=== PATIENT | male | born 1950 | race Caucasian/White ===

== ENCOUNTER 2017-01-20 08:45 | Day surgery (SDC) | payer MEDICARE, OTHER ==
[~2017-01-20 08:45] MED LIST: Lactated Ringers 1,000 ML IV SCH
[2017-01-20] MEDS ORDERED: fentaNYL 100 MCG/2 ML SDV ONE (11:09)
[2017-01-20] MEDS ORDERED: Propofol 200 MG/20 ML SDV ONE (11:09)
[2017-01-20 13:26] VITALS: BP 146/71
--- NOTE | 2017-01-20 22:09 | OR ---
DATE OF THE PROCEDURE: 01/20/2017. REFERRING PROVIDER: SUSAN Salter. PRE-OPERATIVE DIAGNOSES: 1. Recent acute gastritis. 2. Chronic abdominal pain and dyspepsia. The patient is on Omeprazole 20 mg daily and has shown improvement. 3. Some mild dysphagia. POST-OPERATIVE DIAGNOSES: 1. Mild antritis noted. No ulcerations seen. Cold biopsy x2 bites taken for path and H. pylori. 2. Very minimal esophagitis noted at the lower esophageal junction. 3. Upper third portion of esophagus revealed some impacted food, which may have been some lobster tail that the patient had eaten yesterday. This was easily pushed into the stomach. No strictures or rings there, just a slight bend to the esophagus. PROCEDURE: EGD with cold biopsy x1 site using cold forceps. SURGEON: Addy Morel M.D. ANESTHESIA: Monitored anesthesia care. Hollis is a 66-year-old male who was brought to the endoscope suite after discussion of risks and benefits (including but not limited to reaction to medication, bleeding, infection, aspiration, perforation). Informed consent was obtained for monitored anesthesia care and esophagogastroduodenoscopy along with possible biopsy and/or dilatation. Pre-procedure exam including oral cavity was unremarkable. IV, oxygen, and monitors were placed. Patient was placed in the left lateral position and sedation was administered. A bite block was placed gently and scope lightly lubricated and passed through the bite block and over the tongue. Hypopharynx and vocal cords were visualized and unremarkable. Scope was passed through the cricopharynx and into the esophagus. The scope was then passed through the distal esophagus and the GE junction was visualized and photographed. The GE junction was remarkable for some very minimal esophagitis. Vocal cords were visualized and unremarkable. The scope was advanced into the stomach and gastric stringer was suctioned. Pylorus was identified and intubated and then the scope was advanced to the third portion of the duodenum. The second and third portions of the duodenum were unremarkable. The duodenal bulb was visualized and unremarkable. The scope was brought back into the stomach. The pylorus and the antrum were remarkable for some mild antritis. Cold biopsy x2 bites was taken for path and H. pylori and sent for path. The scope was retroflexed to visualize the angularis, fundus, body, and cardia. These were unremarkable. The stomach was desufflated of air and then the scope was slowly withdrawn, and the esophagus was closely visualized during withdrawal all the way into the posterior pharynx. On the way in, some impacted food was noted at the upper third portion of the esophagus and a slight bend. There were no strictures or rings. The impacted food was easily pushed into the stomach and there was no inflammation or ulceration of this esophageal mucosa noted. In the upper esophagus there was an area of heterotopic type mucosa. Cold biopsy x2 bites was taken of this area and sent for path. The patient tolerated the procedure well and went to recovery in stable condition. The patient was monitored until at baseline status. Findings and discharge instructions were reviewed and the patient was discharged in good condition. COMPLICATIONS: None. TOTAL TIME: 10 minutes. ESTIMATED BLOOD LOSS: About 1 mL. RECOMMENDATIONS/FOLLOW-UP: We will await results of path report to determine any change in treatment. I will have the patient continue on omeprazole but actually increase it to twice a day for the next 2 weeks to fully eradicate the symptoms. If symptoms improve, then he can return to once a day thereafter. He will continue to avoid NSAIDs and limit any alcohol or tobacco use. Okay to remain on his low-dose aspirin for now since symptoms improved. I would like to kindly thank Jose Alamo for this referral. DMB: 01/20/2017 12:37:37 MODL: 01/20/2017 20:51:36 /[id number] MTDD
== END 2017-01-20 12:20 | disposition home or self-care (01) ==
LOC: VM.SDS 08:45
PROVIDERS: ATTEND Family Medicine
DX: K29.00 Acute gastritis without bleeding (principal); I25.10 Atherosclerotic heart disease of native coronary artery without angina pectoris; I10 Essential (primary) hypertension; E78.5 Hyperlipidemia, unspecified; E78.1 Pure hyperglyceridemia; Z90.49 Acquired absence of other specified parts of digestive tract; Z95.5 Presence of coronary angioplasty implant and graft; Z98.890 Other specified postprocedural states; Z79.899 Other long term (current) drug therapy; Z79.82 Long term (current) use of aspirin
CPT/HCPCS: 00740; 43239; 88305; 88342; J2704; J3010; J7120